=== PATIENT | female | born 2000 | race Caucasian/White ===

== ENCOUNTER 2019-12-21 20:37 | Emergency (ER) | payer OTHER ==
--- NOTE | 2019-12-21 21:02 | EDM.PDOC ---
ED HPI GENERAL MEDICAL PROBLEM - General Chief Complaint: ENT Problem Stated Complaint: SORE THROAT Time Seen by Provider: 12/21/19 20:50 Source of Information: Reports: Patient History Limitations: Reports: No Limitations - History of Present Illness INITIAL COMMENTS - FREE TEXT/NARRATIVE: Ms. Linder is a very pleasant 19-year-old woman with a past medical history significant for ADHD, migraines, and occasional insomnia, who now presents to the ED stating that she has had a sore throat for the past 2 days. She has had mild ear pain, worse on the right than the left. She has had nausea, but no emesis. She is unsure if she has had recent rhinorrhea or nasal congestion. No recent fever. She had watery diarrhea today. No abdominal pain. No recent cough or dyspnea. The patient has taken Mucinex Cold & Flu, which has not helped her symptoms at all. Patient does not have a PCP. She did not receive an influenza vaccine this season, and declined an offer to receive one here today. Throat Pain Score (Numeric/FACES): 4 - Related Data Allergies Allergy/AdvReac Type Severity Reaction Status Date / Time No Known Allergies Allergy Verified 12/21/19 20:46 Home Meds: Home Meds . [No Known Home Meds] 12/21/19 [History] Past Medical History Neurological History: Reports: Migraines Psychiatric History: Reports: ADHD, Other (See Below) (Insomnia) - Past Surgical History HEENT Surgical History: Reports: Oral Surgery (wisdom teeth extraction) Social & Family History - Tobacco Use Smoking Status *Q: Never Smoker Second Hand Smoke Exposure: No - Caffeine Use Caffeine Use: Reports: None - Alcohol Use Alcohol Use History: No - Recreational Drug Use Recreational Drug Use: No - Living Situation & Occupation Living situation: Reports: Single, with Significant Other (Boyfriend) Occupation: Unemployed ED ROS ENT - Review of Systems Review Of Systems: Comprehensive ROS is negative, except as noted in HPI. ED EXAM, ENT - Physical Exam Exam: See Below Exam Limited By: No Limitations General Appearance: Alert, WD/WN, No Apparent Distress Eye Exam: Bilateral Eye: EOMI, Normal Inspection Ears: Normal External Exam, Normal Canal, Hearing Grossly Normal, Normal TMs Nose: Normal Inspection, Normal Mucousa, No Blood Mouth/Throat: Normal Gums, Normal Lips, Normal Oropharynx (The right tonsil has an exudate, while the left does not. Neither tonsil are enlarged or erythematous), Normal Teeth Head: Atraumatic, Normocephalic Neck: Normal Inspection, Supple, Non-Tender, Full Range of Motion. No: Lymphadenopathy (L), Lymphadenopathy (R) Course - Vital Signs Last Recorded V/S: Last Vital Signs Temp 36.7 C 12/21/19 20:45 Pulse 100 12/21/19 20:45 Resp 16 12/21/19 20:45 BP 118/72 12/21/19 20:45 Pulse Ox 99 12/21/19 20:45 - Orders/Labs/Meds Orders: Active Orders 24 hr Category Date Time Status CULTURE STREP A CONFIRMATION [] Stat Lab 12/21/19 20:56 Results STREP SCRN A RAPID W CULT CONF [] Stat Lab 12/21/19 20:56 Results - Re-Assessments/Exams Free Text/Narrative Re-Assessment/Exam: 12/21/19 21:02 As above, the right tonsil has an exudate, while the left does not, and the patient is complaining of right ear pain more than left. I swabbed her tonsils for a rapid strep test. 12/21/19 21:41 Test results discussed with the patient. Her rapid strep test returned negative. She is likely suffering from viral pharyngitis. I recommended Tylenol, ibuprofen, Chloraseptic spray, or warm salt water gargles. Departure - Departure Time of Disposition: 21:42 Disposition: Home, Self-Care 01 Condition: Good Clinical Impression: Viral pharyngitis - Discharge Information *PRESCRIPTION DRUG MONITORING PROGRAM REVIEWED*: Not Applicable *COPY OF PRESCRIPTION DRUG MONITORING REPORT IN PATIENT OLY: Not Applicable Referrals: PCP,None [Primary Care Provider] - Forms: ED Department Discharge Additional Instructions: You were seen in the emergency room for a sore throat and nausea, along with some right ear pain, for the past couple of days. Work-up in the ER included a rapid strep test, which returned negative. Based on your history, physical exam, and ER test, you are most likely suffering from viral pharyngitis. Unfortunately, there are no medicines to get rid of viral pharyngitis - it will have to run its course. We recommend that you try Tylenol, ibuprofen, Chloraseptic spray, or warm salt water gargles to treat your sore throat. If any other problems, please do not hesitate to return to the ER. Sepsis Event Note - Evaluation Sepsis Screening Result: No Definite Risk - Focused Exam Vital Signs: Vital Signs Temp Pulse Resp BP Pulse Ox 12/21/19 20:45 36.7 C 100 16 118/72 99 Date Exam was Performed: 12/21/19 Time Exam was Performed: 21:41 - My Orders Last 24 Hours: My Active Orders 12/21/19 20:56 CULTURE STREP A CONFIRMATION [RM] Stat STREP SCRN A RAPID W CULT CONF [RM] Stat - Assessment/Plan Last 24 Hours: My Active Orders 12/21/19 20:56 CULTURE STREP A CONFIRMATION [RM] Stat STREP SCRN A RAPID W CULT CONF [RM] Stat
== END 2019-12-21 21:51 | disposition home or self-care (01) ==
LOC: JD.ED 20:37
DX: J02.8 Acute pharyngitis due to other specified organisms (principal); B97.89 Other viral agents as the cause of diseases classified elsewhere
CPT/HCPCS: 87081; 87430; 99282; 99283

== ENCOUNTER 2020-02-03 19:47 | Emergency (ER) | payer OTHER ==
--- NOTE | 2020-02-03 19:57 | EDM.PDOC ---
ED HPI GENERAL MEDICAL PROBLEM - General Stated Complaint: FEVER/HEADACHE/STIFF NECK Time Seen by Provider: 02/03/20 19:52 Source of Information: Reports: Patient History Limitations: Reports: No Limitations - History of Present Illness INITIAL COMMENTS - FREE TEXT/NARRATIVE: TRIAGE NOTE -- pt c/o a headache and stiff neck for the last few days. pt reports that she is light sensitive. reports fever since yesterday as high as 103.7 today is 100.3 no respiratory symptoms above. She has she has had a headache for the past 2 days. Fever has been noted. There is a history of migraine headaches. She does not have any medications to use acutely for headache. No treatment or other intervention to moderate symptoms. Headache seems to be about the same or possibly worsening a bit. No nausea vomiting. No mental status changes. Photophobia is noted. Headache Pain Score (Numeric/FACES): 7 - Related Data Allergies Allergy/AdvReac Type Severity Reaction Status Date / Time No Known Allergies Allergy Verified 02/03/20 20:06 Home Meds: Home Meds . [No Known Home Meds] 12/21/19 [History] Past Medical History - Past Health History Medical/Surgical History: Denies Medical/Surgical History Neurological History: Reports: Migraines Psychiatric History: Reports: ADHD, Other (See Below) (Insomnia) - Past Surgical History HEENT Surgical History: Reports: Oral Surgery (wisdom teeth extraction) Social & Family History - Tobacco Use Smoking Status *Q: Never Smoker - Caffeine Use Caffeine Use: Reports: None - Living Situation & Occupation Living situation: Reports: Single, with Significant Other (Boyfriend) Occupation: Unemployed ED ROS GENERAL - Review of Systems Review Of Systems: Comprehensive ROS is negative, except as noted in HPI. ED EXAM, GENERAL - Physical Exam Exam: See Below Exam Limited By: No Limitations General Appearance: Alert, WD/WN, No Apparent Distress Eye Exam: Bilateral Eye: EOMI, PERRL Ears: Normal External Exam Nose: Normal Inspection Throat/Mouth: Normal Inspection Head: Atraumatic, Normocephalic Neck: Normal Inspection, Supple, Other (There is some tenderness of the neck. Resists vigorous range of motion testing but no jocelyn Kernig's or Brudzinski.) Respiratory/Chest: No Respiratory Distress, Lungs Clear, Normal Breath Sounds Cardiovascular: Tachycardia (Mild) GI/Abdominal: Soft, Non-Tender Back Exam: Normal Inspection Extremities: Normal Inspection Neurological: Alert, Oriented, CN II-XII Intact, Normal Cognition (Mentally sharp), No Motor/Sensory Deficits Psychiatric: Normal Affect Skin Exam: Warm, Dry Course - Vital Signs Last Recorded V/S: Last Vital Signs Temp 38.2 C H 02/03/20 23:21 Pulse 115 H 02/03/20 23:21 Resp 20 02/03/20 23:21 BP 87/58 L 02/03/20 20:47 Pulse Ox 100 02/03/20 23:21 - Orders/Labs/Meds Orders: Active Orders 24 hr Category Date Time Status Head wo Cont [CT] Stat Exams 02/03/20 22:32 Taken CBC WITH MANUAL DIFF [HEME] Stat Lab 02/03/20 23:00 Results CORONAVIRUS COVID-19 PCR PHL Stat Lab 02/03/20 22:41 Ordered CULTURE BLOOD [BC] Stat Lab 02/03/20 22:55 Received CULTURE BLOOD [BC] Stat Lab 02/03/20 23:00 Received CULTURE URINE [RM] Stat Lab 02/03/20 20:55 Received FERRITIN [CHEM] Stat Lab 02/03/20 23:00 Received Blood Culture x2 Reflex Set [OM.PC] Stat Oth 02/03/20 22:32 Ordered Labs: Laboratory Tests 02/03/20 02/03/20 02/03/20 Range/Units 20:55 20:55 20:55 WBC (3.98-10.04) K/mm3 RBC (3.98-5.22) M/mm3 Hgb (11.2-15.7) gm/dl Hct (34.1-44.9) % MCV (79.4-94.8) fl MCH (25.6-32.2) pg MCHC (32.2-35.5) g/dl RDW Std Deviation (36.4-46.3) fL Plt Count (182-369) K/mm3 MPV (9.4-12.3) fl PT (9.7-12.0) SECONDS INR D-Dimer, Quantitative (0.19-0.50) mg/L Sodium (136-145) mEq/L Potassium (3.5-5.1) mEq/L Chloride (98-107) mEq/L Carbon Dioxide (21-32) mEq/L Anion Gap (5-15) BUN (7-18) mg/dL Creatinine (0.55-1.02) mg/dL Est Cr Clr Drug Dosing mL/min Estimated GFR (MDRD) (>60) mL/min BUN/Creatinine Ratio (14-18) Glucose (74-106) mg/dL Lactic Acid (0.4-2.0) mmol/L Calcium (8.5-10.1) mg/dL Total Bilirubin (0.2-1.0) mg/dL AST (15-37) U/L ALT (14-59) U/L Alkaline Phosphatase (46-116) U/L Lactate Dehydrogenase (81-234) U/L Troponin I (0.00-0.056) ng/mL C-Reactive Protein (<1.0) mg/dL Total Protein (6.4-8.2) g/dl Albumin (3.4-5.0) g/dl Globulin gm/dL Albumin/Globulin Ratio (1-2) Urine Color Yellow (Yellow) Urine Appearance Slt cloudy H (Clear) Urine pH 7.5 (5.0-8.0) Ur Specific [place] 1.025 (1.005-1.030) Urine Protein 1+ H (Negative) Urine Glucose (UA) Negative (Negative) Urine Ketones Negative (Negative) Urine Occult Blood Negative (Negative) Urine Nitrite Negative (Negative) Urine Bilirubin Negative (Negative) Urine Urobilinogen 1.0 (0.2-1.0) Ur Leukocyte Esterase Trace H (Negative) Urine RBC 0-5 (0-5) /hpf Urine WBC 10-20 H (0-5) /hpf Ur Squamous Epith Cells 0-5 (0-5) /hpf Amorphous Sediment Few H (NOT SEEN) /hpf Urine Bacteria Many H (FEW) /hpf Urine Mucus Many H (FEW) /hpf Urine HCG, Qual Negative (NEGATIVE) Urine Opiates Screen Negative (XVGXIZ=044) Ur Buprenorphine Scrn Negative (CUTOFF=10) Ur Oxycodone Screen Negative (EQZ6TC=097) Urine Methadone Screen Negative (EIIJEE=659) Ur Propoxyphene Screen Negative (QRGUGH=539) Ur Barbiturates Screen Negative (ZOZOTJ=854) Ur Tricyclics Screen Negative (NQZIAK=130) Ur Phencyclidine Scrn Negative (CUTOFF=25) Ur Amphetamine Screen Presumptive positive H (JJAUCB=680) U Methamphetamines Scrn Negative (CUVVFH=819) U Benzodiazepines Scrn Negative (YHBUIW=080) U Cocaine Metab Screen Negative (AZYUDR=025) U Marijuana (THC) Screen Negative (CUTOFF=50) 02/03/20 02/03/20 02/03/20 Range/Units 23:00 23:00 23:00 WBC 7.06 (3.98-10.04) K/mm3 RBC 3.83 L (3.98-5.22) M/mm3 Hgb 12.0 (11.2-15.7) gm/dl Hct 35.4 (34.1-44.9) % MCV 92.4 (79.4-94.8) fl MCH 31.3 (25.6-32.2) pg MCHC 33.9 (32.2-35.5) g/dl RDW Std Deviation 40.9 (36.4-46.3) fL Plt Count 222 (182-369) K/mm3 MPV 10.3 (9.4-12.3) fl PT (9.7-12.0) SECONDS INR D-Dimer, Quantitative 0.79 H (0.19-0.50) mg/L Sodium 139 (136-145) mEq/L Potassium 3.6 (3.5-5.1) mEq/L Chloride 105 (98-107) mEq/L Carbon Dioxide 24 (21-32) mEq/L Anion Gap 13.6 (5-15) BUN 7 (7-18) mg/dL Creatinine 0.9 (0.55-1.02) mg/dL Est Cr Clr Drug Dosing 85.38 mL/min Estimated GFR (MDRD) > 60 (>60) mL/min BUN/Creatinine Ratio 7.8 L (14-18) Glucose 100 (74-106) mg/dL Lactic Acid (0.4-2.0) mmol/L Calcium 8.5 (8.5-10.1) mg/dL Total Bilirubin 0.4 (0.2-1.0) mg/dL AST 18 (15-37) U/L ALT 21 (14-59) U/L Alkaline Phosphatase 72 (46-116) U/L Lactate Dehydrogenase 180 (81-234) U/L Troponin I < 0.017 (0.00-0.056) ng/mL C-Reactive Protein 6.4 H* (<1.0) mg/dL Total Protein 6.9 (6.4-8.2) g/dl Albumin 3.3 L (3.4-5.0) g/dl Globulin 3.6 gm/dL Albumin/Globulin Ratio 0.9 L (1-2) Urine Color (Yellow) Urine Appearance (Clear) Urine pH (5.0-8.0) Ur Specific [place] (1.005-1.030) Urine Protein (Negative) Urine Glucose (UA) (Negative) Urine Ketones (Negative) Urine Occult Blood (Negative) Urine Nitrite (Negative) Urine Bilirubin (Negative) Urine Urobilinogen (0.2-1.0) Ur Leukocyte Esterase (Negative) Urine RBC (0-5) /hpf Urine WBC (0-5) /hpf Ur Squamous Epith Cells (0-5) /hpf Amorphous Sediment (NOT SEEN) /hpf Urine Bacteria (FEW) /hpf Urine Mucus (FEW) /hpf Urine HCG, Qual (NEGATIVE) Urine Opiates Screen (DGGPYW=096) Ur Buprenorphine Scrn (CUTOFF=10) Ur Oxycodone Screen (UTM7XS=833) Urine Methadone Screen (JCMMPT=830) Ur Propoxyphene Screen (TRMXQI=949) Ur Barbiturates Screen (YWEMJL=902) Ur Tricyclics Screen (TGWHQA=742) Ur Phencyclidine Scrn (CUTOFF=25) Ur Amphetamine Screen (SFSMQJ=141) U Methamphetamines Scrn (EYFBMX=293) U Benzodiazepines Scrn (LMOPXX=177) U Cocaine Metab Screen (TXJVSX=140) U Marijuana (THC) Screen (CUTOFF=50) 02/03/20 02/03/20 Range/Units 23:00 23:00 WBC (3.98-10.04) K/mm3 RBC (3.98-5.22) M/mm3 Hgb (11.2-15.7) gm/dl Hct (34.1-44.9) % MCV (79.4-94.8) fl MCH (25.6-32.2) pg MCHC (32.2-35.5) g/dl RDW Std Deviation (36.4-46.3) fL Plt Count (182-369) K/mm3 MPV (9.4-12.3) fl PT 11.8 (9.7-12.0) SECONDS INR 1.09 D-Dimer, Quantitative (0.19-0.50) mg/L Sodium (136-145) mEq/L Potassium (3.5-5.1) mEq/L Chloride (98-107) mEq/L Carbon Dioxide (21-32) mEq/L Anion Gap (5-15) BUN (7-18) mg/dL Creatinine (0.55-1.02) mg/dL Est Cr Clr Drug Dosing mL/min Estimated GFR (MDRD) (>60) mL/min BUN/Creatinine Ratio (14-18) Glucose (74-106) mg/dL Lactic Acid 0.8 (0.4-2.0) mmol/L Calcium (8.5-10.1) mg/dL Total Bilirubin (0.2-1.0) mg/dL AST (15-37) U/L ALT (14-59) U/L Alkaline Phosphatase (46-116) U/L Lactate Dehydrogenase (81-234) U/L Troponin I (0.00-0.056) ng/mL C-Reactive Protein (<1.0) mg/dL Total Protein (6.4-8.2) g/dl Albumin (3.4-5.0) g/dl Globulin gm/dL Albumin/Globulin Ratio (1-2) Urine Color (Yellow) Urine Appearance (Clear) Urine pH (5.0-8.0) Ur Specific [place] (1.005-1.030) Urine Protein (Negative) Urine Glucose (UA) (Negative) Urine Ketones (Negative) Urine Occult Blood (Negative) Urine Nitrite (Negative) Urine Bilirubin (Negative) Urine Urobilinogen (0.2-1.0) Ur Leukocyte Esterase (Negative) Urine RBC (0-5) /hpf Urine WBC (0-5) /hpf Ur Squamous Epith Cells (0-5) /hpf Amorphous Sediment (NOT SEEN) /hpf Urine Bacteria (FEW) /hpf Urine Mucus (FEW) /hpf Urine HCG, Qual (NEGATIVE) Urine Opiates Screen (YFMAGA=301) Ur Buprenorphine Scrn (CUTOFF=10) Ur Oxycodone Screen (QIH2KI=765) Urine Methadone Screen (NYKATS=339) Ur Propoxyphene Screen (WZRWYY=917) Ur Barbiturates Screen (TAPCRB=228) Ur Tricyclics Screen (NSGJLJ=485) Ur Phencyclidine Scrn (CUTOFF=25) Ur Amphetamine Screen (FORFCG=803) U Methamphetamines Scrn (WYJVLO=811) U Benzodiazepines Scrn (HWFVNL=518) U Cocaine Metab Screen (FKTUFG=914) U Marijuana (THC) Screen (CUTOFF=50) Meds: Medications Discontinued Medications Generic Name Dose Route Start Last Admin Trade Name Freq PRN Reason Stop Dose Admin Sodium Chloride 1,000 mls @ 1,000 mls/hr 02/03/20 22:49 02/03/20 23:17 Normal Saline IV 02/03/20 23:48 1,000 mls/hr ONETIME ONE Administration Metoclopramide HCl 10 mg 02/03/20 22:49 02/03/20 23:17 Reglan IVPUSH 02/03/20 22:50 10 mg ONETIME ONE Administration - Re-Assessments/Exams Free Text/Narrative Re-Assessment/Exam: 02/03/20 23:40 There is some concern for possible bacterial meningitis. The patient herself understands that. However the presentation is somewhat atypical and that the headache has been indolent over the past 2 or even 3 days and also with a history of migraines. There has been no alteration in mental status either by history or on exam. Patient is noted not to appear at all toxic or compromised. Lab testing is in progress. There is concern for COVID and swab has been done. Lumbar puncture is to be done and antibiotics are about to be administered in any event. In the midst of this evaluation the patient insists on going home and intends to sign out AGAINST MEDICAL ADVICE. Nursing staff and I are trying to persuade the patient to stay and be taken care of appropriately. 02/03/20 23:46 White count is normal and differential is pending. There is modest elevation of the d-dimer. 02/03/20 23:47 02/03/20 23:48 02/03/20 23:51 C-reactive protein is 6.4. Troponin is within the reference range. 02/04/20 00:02 There were 3 attempts to do the COVID swab. Patient repeatedly refused. CT of the head does not show any abnormality but suboptimal study secondary to patient poor cooperation. There is some evidence of urinary tract infection. The patient is not willing to be further evaluated or treated and left the emergency department. She was repeatedly given to understand that she may have a serious life-threatening condition but she left anyway. She is urged to come back at any time and will be happy to see her and take care of her. 02/04/20 00:09 Urine is positive for amphetamines. Patient takes a medication for her ADHD apparently. Departure - Departure Time of Disposition: 00:04 Disposition: Against Medical Advice 07 Condition: Undetermined Clinical Impression: Low grade fever, Suspected UTI, Uncooperative behavior, Headache above the eye region, History of migraine headaches - Discharge Information Forms: Refusal of Care AMA Sepsis Event Note - Focused Exam Vital Signs: Vital Signs Temp Pulse Resp BP Pulse Ox 02/03/20 23:21 38.2 C H 115 H 20 100 02/03/20 20:47 38.1 C 110 H 18 87/58 L 100 02/03/20 20:03 37.9 C 123 H 16 105/68 98 Date Exam was Performed: 02/04/20 Time Exam was Performed: 00:01 - My Orders Last 24 Hours: My Active Orders 02/03/20 20:55 CULTURE URINE [RM] Stat 02/03/20 22:32 Head wo Cont [CT] Stat Blood Culture x2 Reflex Set [OM.PC] Stat 02/03/20 22:41 CORONAVIRUS COVID-19 PCR PHL Stat 02/03/20 22:55 CULTURE BLOOD [BC] Stat 02/03/20 23:00 CBC WITH MANUAL DIFF [HEME] Stat CULTURE BLOOD [BC] Stat FERRITIN [CHEM] Stat - Assessment/Plan Last 24 Hours: My Active Orders 02/03/20 20:55 CULTURE URINE [RM] Stat 02/03/20 22:32 Head wo Cont [CT] Stat Blood Culture x2 Reflex Set [OM.PC] Stat 02/03/20 22:41 CORONAVIRUS COVID-19 PCR PHL Stat 02/03/20 22:55 CULTURE BLOOD [BC] Stat 02/03/20 23:00 CBC WITH MANUAL DIFF [HEME] Stat CULTURE BLOOD [BC] Stat FERRITIN [CHEM] Stat
--- NOTE | 2020-02-03 22:15 | CR ---
Chest: Portable view of the chest was obtained. Comparison: No prior chest imaging. Heart size and mediastinum are normal. Lungs are clear with no acute parenchymal change. Bony structures appear within normal limits. Impression: 1. Nothing acute is appreciated on portable chest x-ray. Diagnostic code #1 Study was dictated in MDT
[2020-02-03] MEDS ORDERED: Metoclopramide 10 MG/2 ML SDV IVPUSH ONE (22:49)
[2020-02-03] MEDS ORDERED: Sodium Chloride 0.9% 1,000 ML IV ONE (22:49)
--- NOTE | 2020-02-04 06:15 | CT ---
Head CT Technique: Multiple axial sections through the brain were obtained. Intravenous contrast was not utilized. Comparison: No prior intracranial imaging is available. Findings: Motion artifact noted throughout the study. Inferior portions of the brain also not included on the study. Within limitations of motion, ventricles along with basal cisterns and sulci over the convexities appear within normal limits. No definite abnormal parenchymal densities are seen. No evidence of intracranial hemorrhage. No midline shift or mass-effect is seen. Bone window settings were reviewed which shows no gross calvarial abnormality. Visualized mastoid and paranasal sinuses are clear. Impression: 1. Motion artifact limiting details of the study. Inferior portions of the brain also not included on the study. 2. Within above limitation, no gross abnormality is appreciated. Note: Consider repeat imaging when patient's condition permits. Diagnostic code #2 This report was dictated in MDT I agree with preliminary report from Demetria, finalized on 02/04/20, 12:54 AM Central Daylight Time
== END 2020-02-03 23:45 | disposition left against medical advice (07) ==
LOC: JD.ED 19:47
DX: G43.909 Migraine, unspecified, not intractable, without status migrainosus (principal); R50.9 Fever, unspecified; F91.9 Conduct disorder, unspecified
CPT/HCPCS: 36415; 70450; 70450-26; 71045; 71045-26; 80053; 80306; 81001; 81003; 81025; 82728; 83605; 83615; 84484; 85007; 85027; 85379; 85610; 86140; 87040; 87086; 87088; 96374; 99284-25; J2765; J7030

== ENCOUNTER 2021-11-18 00:40 | Emergency (ER) | payer OTHER ==
[2021-11-18] MEDS ORDERED: Ondansetron 4 MG/2 ML SDV IVPUSH ONE (01:21)
[2021-11-18] MEDS ORDERED: Ketorolac 15 MG/ML SDV IVPUSH ONE (01:21)
[2021-11-18] MEDS ORDERED: Lactated Ringers 1,000 ML IV ONE (01:21)
[2021-11-18] MEDS ORDERED: cefTRIAXone 1 GM in Sodium Chloride 0.9% 100 ML IV ONE (01:51)
[2021-11-18] MEDS ORDERED: Morphine 4 MG/ML Syringe IVPUSH ONE (02:50)
== END 2021-11-18 04:13 | disposition home or self-care (01) ==
LOC: JD.ED 00:40
DX: N23 Unspecified renal colic (principal)
CPT/HCPCS: 36415; 80053; 81001; 85025; 87086; 96365; 96375; 99284; J0696; J1885; J2270; J2405; J7120; 99283